=== PATIENT | male | born 1985 | race Caucasian/White ===

== ENCOUNTER 2018-06-18 23:09 | Emergency (ER) | payer MEDICAID ==
--- NOTE | 2018-06-19 00:17 | ED Physician Chart ---
ED Chief Complaint/HPI - Patient Information Date Seen:: 06/19/18 Time Seen:: 00:09 Chief Complaint:: Palpitation History of Present Illness:: 32 yo male with history of abusing pain killers for 2 years. Pt drank one bottle of vodka one day ago. Pt also took tramadol 15 tablets one day ago. Pt began to feel palpitation this morning. Pt called ambulance and was taken to [facility] ER where he stated that he received ativan. Pt kept asking: "Please calm me down." Pt was tachycardia at ER. Allergies:: Allergies Allergy/AdvReac Type Severity Reaction Status Date / Time No Known Allergies Allergy Verified 06/18/18 23:31 Vitals:: Vital Signs - 8 hr 06/18/18 23:20 Temp 99.8 F HR 103 RR 18 BP 119/79 O2 Sat % 97 ED Review of Systems - Review of Systems General/Constitutional: No fever, No chills Skin: No rash Head: Headache Eyes: No pain ENT: No nasal drainage Neck: No neck pain Cardio Vascular: No chest pain, Palpitations Pulmonary: No SOB GI: Nausea Musculoskeletal: No bone or joint pain Psychiatric: Anxiety Neurological: No focal symptoms ED Past Medical History - Past Medical History Past Medical History: Other (Substance abuse) Social History: Smoker, Alcohol, Illicit Drug Use Psychiatricy History: Other (Anxiety) Family Medical History - Family Member Mother History Unknown: Yes ED Physical Exam - Physical Examination General/Constitutional: Awake, Alert Head: Atraumatic Eyes: PERRL Skin: No ecchymosis ENMT: Nasal exam nl Neck: No nuchal rigidity Respiratory: No Wheeze/Rhonchi/Rales Cardio Vascular: RRR, No murmur, gallop, rubs, NL S1 S2 GI: No tenderness/rebounding/guarding Extremities: normal strength in all extremities Neuro/Psych: No focal deficits ED Labs/Radiology/EKG Results - Lab Results Results: Laboratory Last Values Urine Source MIDSTREAM 06/19/18 00:10 Urine Color YELLOW 06/19/18 00:10 Urine Clarity CLEAR (CLEAR) 06/19/18 00:10 Urine pH 6.0 (4.6 - 8.0) 06/19/18 00:10 Ur Specific [place] 1.020 (1.005-1.030) 06/19/18 00:10 Urine Protein TRACE mg/dL (NEGATIVE) 06/19/18 00:10 Urine Glucose (UA) NEGATIVE mg/dL (NEGATIVE) 06/19/18 00:10 Urine Ketones TRACE mg/dL (NEGATIVE) 06/19/18 00:10 Urine Blood NEGATIVE (NEGATIVE) 06/19/18 00:10 Urine Nitrate NEGATIVE (NEGATIVE) 06/19/18 00:10 Urine Bilirubin NEGATIVE (NEGATIVE) 06/19/18 00:10 Urine Urobilinogen 0.2 E.U./dL (0.2 - 1.0) 06/19/18 00:10 Ur Leukocyte Esterase NEGATIVE (NEGATIVE) 06/19/18 00:10 Urine RBC 0-2 /hpf (0-5) H 06/19/18 00:10 Urine WBC 0-2 /hpf (0-5) 06/19/18 00:10 Ur Epithelial Cells OCCASIONAL /lpf (FEW) 06/19/18 00:10 Urine Bacteria OCCASIONAL /hpf (NONE SEEN) 06/19/18 00:10 Urine Opiates Screen NEGATIVE (NEGATIVE) 06/19/18 00:10 Urine Methadone Screen NEGATIVE (NEGATIVE) 06/19/18 00:10 Ur Barbiturates Screen NEGATIVE (NEGATIVE) 06/19/18 00:10 Ur Tricyclics Screen NEGATIVE (NEGATIVE) 06/19/18 00:10 Ur Phencyclidine Scrn NEGATIVE (NEGATIVE) 06/19/18 00:10 Amphetamines Screen NEGATIVE (NEGATIVE) 06/19/18 00:10 U Methamphetamines Scrn NEGATIVE (NEGATIVE) 06/19/18 00:10 U Benzodiazepines Scrn POSITIVE (NEGATIVE) H 06/19/18 00:10 U Cocaine Metab Screen POSITIVE (NEGATIVE) H 06/19/18 00:10 U Cannabinoids Screen POSITIVE (NEGATIVE) H 06/19/18 00:10 - EKG Interpretations EKG Time:: 23:32 Rate & Rhythm: 95 bpm, rhythm [place]: normal axis ED Assessment - Assessment General Assessment: Poly-substance abuse Tachycardia Anxiety Assessment/Comments:: UA, urine drug screen Librium 25mg PO x 1 ED Septic Shock - . Is Septic Shock (SBP<90, OR Lactate>4 mmol\\L) present?: No - <6hrs of presentation: Vital Signs: Vital Signs - 8 hr 06/18/18 23:20 Temp 99.8 F HR 103 RR 18 BP 119/79 O2 Sat % 97 ED Reassessment (Disposition) - Reassessment Reassessment:: Pt's heart rate went down to 74 bpm Reassessment Condition:: Improved - Patient Disposition Discharge/Transfer:: Home
[2018-06-19 00:54] LABS: URINE SOURCE MIDSTREAM
[2018-06-19 00:58] LABS: URINE BILIRUBIN NEGATIVE (NEGATIVE); URINE BLOOD NEGATIVE (NEGATIVE); URINE GLUCOSE (UA) NEGATIVE (NEGATIVE); URINE KETONE TRACE mg/dL (NEGATIVE); URINE LEUKOCYTE ESTERASE NEGATIVE (NEGATIVE); URINE MICROSCOPIC INDICATED? YES; URINE NITRATE NEGATIVE (NEGATIVE); URINE PROTEIN TRACE mg/dL (NEGATIVE); URINE UROBILINOGEN 0.2 E.U./dL (0.2 - 1.0)
[2018-06-19 01:07] LABS: AMPHETAMINE URINE NEGATIVE (NEGATIVE); BARBITURATES URINE NEGATIVE (NEGATIVE); BENZODIAZEPINES QUAL URINE POSITIVE (NEGATIVE); CANNABINOID THC POSITIVE (NEGATIVE); COCAINE METABOLITE QUAL URINE POSITIVE (NEGATIVE); METHADONE URINE NEGATIVE (NEGATIVE); METHAMPHETAMINES QUAL URINE NEGATIVE (NEGATIVE); OPIATES (MORPHINE) QUAL. URINE NEGATIVE (NEGATIVE); PHENCYCLIDINE (PCP) URINE NEGATIVE (NEGATIVE); TRICYCLICS (TCA) QUAL. URINE NEGATIVE (NEGATIVE)
[2018-06-19 01:10] LABS: URINE BACTERIA OCCASIONAL /hpf (NONE SEEN); URINE CLARITY CLEAR (CLEAR); URINE COLOR YELLOW; URINE EPITHELIAL CELLS OCCASIONAL /lpf (FEW); URINE RBC 0-2 /hpf (0-5); URINE WBC 0-2 /hpf (0-5)
== END 2018-06-19 01:54 | disposition home or self-care (01) ==
LOC: ER 23:09
DX: F19.10 Other psychoactive substance abuse, uncomplicated (principal); F41.9 Anxiety disorder, unspecified; R00.0 Tachycardia, unspecified; F17.200 Nicotine dependence, unspecified, uncomplicated
CPT/HCPCS: 80307; 81001-TC; 93005; Z7502; Z7610